=== PATIENT | female | born 1975 | race Caucasian/White ===

== ENCOUNTER 2025-04-27 07:00 | Day surgery (SDC) | payer OTHER ==
[2025-04-20 12:19] LABS: BASO % 0.8 % (0.1-1.2); EOS # 0.12 (0.04-0.54); EOS % 2.5 % (0.7-7.0); LYMPH # 1.96 (1.18-3.74); LYMPH % 41.0 % (19.3-53.1); MEAN PLATELET VOLUME 10.30 fl (9.4-12.4); MONO # 0.31 (0.24-0.82); MONO % 6.5 % (4.7-12.5); NEUT # 2.35 (1.56-6.13); NEUT % 49.2 % (34.0-71.1); RED CELL DISTRIBUTION WIDTH 13.9 % (11.6-14.4)
[2025-04-20 12:35] LABS: URINE APPEARANCE Clear; URINE BILIRRUBIN Negative (NEGATIVE); URINE BLOOD Large; URINE COLOR Yellow; URINE GLUCOSE Negative (NEGATIVE); URINE KETONE Trace (NEGATIVE); URINE LEUKOCYTE Small; URINE NITRATE Negative; URINE PROTEIN Negative (NEGATIVE); URINE UROBILINOGEN 1.0 E.U./dl
[2025-04-20 12:40] LABS: URINE BACTERIA 1336.8 uL (0.0-1933); URINE EPITHELIAL CELLS 31.3 uL (0.0-38.8); URINE RBC 34.0 uL (0.0-20.8); URINE WBC 40.1 uL (0.0-23.2)
[2025-04-20 12:43] LABS: INR 1.03
[2025-04-20 12:52] LABS: ALT/SGPT 24.0 U/L (12-78); AST/SGOT 16.0 U/L (15-37); BILIRUBIN TOTAL 0.87 mg/dL (0.3-1.2); BUN CREA RATIO 14.0 (7.0-25.0); CREATININE SERUM 0.76 mg/dL (0.55-1.02); GFR 80.88; GLOBULINA 3.6 G/DL (2.4-3.5); GLUCOSE FASTING 78.0 mg/dL (65-100); OSMOLALITY SERUM 281.0 MOSM/KG (275-295); TSH 1.41 uIU/mL (0.358-3.74)
[2025-04-20 13:22] LABS: URINE CAST 0.29 uL (0.0-1.40)
[~2025-04-27 07:00] MED LIST: CLINDAMYCIN PHOSPHATE 150 MG/ML (900mg) IV SCH; PRENAPLUS TABL1 EACH PO
[2025-04-27] MEDS ORDERED: CLINDAMYCIN PHOSPHATE 150 MG/ML (900mg) ONE (09:03)
[2025-04-27] MEDS ORDERED: POVIDONE-IODINE 118 ML BOTT TOP ONE (09:03)
[2025-04-27] MEDS ORDERED: MONDOXYNE NL100 MG PO (10:25)
[2025-04-27] MEDS ORDERED: NAPR500T14 PO (10:25)
[2025-04-27] MEDS ORDERED: PROMETHAZINE HCL 50 MG/ML AMPUL IM ONE (10:30)
[2025-04-27] MEDS ORDERED: MORPHINE SULFATE 4 MG/ML VIAL IV PRN (10:30)
== END 2025-04-27 15:50 | disposition home or self-care (01) ==
LOC: CIR.AMB 07:00
PROVIDERS: ATTEND Obstetrics & Gynecology
DX: D25.0 Submucous leiomyoma of uterus (principal); N80.03 Adenomyosis of the uterus; N92.0 Excessive and frequent menstruation with regular cycle; N84.0 Polyp of corpus uteri; Z88.0 Allergy status to penicillin